=== PATIENT | female | born 1985 | race Caucasian/White ===

== ENCOUNTER 2017-09-13 21:39 | Emergency (ER) | payer SELFPAY ==
[2017-09-13] MEDS ORDERED: Ketorolac 60 MG/2 ML SDV IM ONE (22:02)
[2017-09-13] MEDS ORDERED: Ketorolac 60 MG/2 ML SDV ONE (22:04)
[2017-09-13] MEDS ORDERED: Amoxicillin 500 MG Cap PO ONE (22:15)
--- NOTE | 2017-09-13 22:16 | EDM.PDOC ---
ED HPI GENERAL MEDICAL PROBLEM - General Chief Complaint: General Stated Complaint: RIGHT EAR Pain Time Seen by Provider: 09/13/17 22:00 Source of Information: Reports: Patient History Limitations: Reports: No Limitations - History of Present Illness INITIAL COMMENTS - FREE TEXT/NARRATIVE: 32 YO WF presents to ER with complaints of right ear pain x 2 weeks and right sided jaw pain which began tonight. Pt with history of ear infection 02/2017. Pt denies any fever/chills, no nausea/vomiting, no dizziness and no redness or swelling of right ear or right side of the face. Onset: Today Duration: Week(s): (2) Location: Reports: Face Quality: Reports: Ache Severity: Moderate Improves with: Reports: None Worsens with: Reports: None Associated Symptoms: Reports: No Other Symptoms - Related Data Allergies Allergy/AdvReac Type Severity Reaction Status Date / Time No Known Drug Allergies Allergy none Verified 09/13/17 21:58 Home Meds: Home Meds Amoxicillin 875 mg PO BID #20 tab 09/13/17 [Rx] Excedrine 3 tab PO TID PRN 09/13/17 [History] ED ROS GENERAL - Review of Systems Review Of Systems: See Below Constitutional: Reports: No Symptoms HEENT: Reports: Dental Pain, Ear Pain. Denies: Eye Pain, Hearing Loss, Sinus Problem, Throat Pain Respiratory: Reports: No Symptoms Cardiovascular: Reports: No Symptoms Endocrine: Reports: No Symptoms GI/Abdominal: Reports: No Symptoms : Reports: No Symptoms Musculoskeletal: Reports: No Symptoms Skin: Reports: No Symptoms Neurological: Reports: No Symptoms Psychiatric: Reports: No Symptoms Hematologic/Lymphatic: Reports: No Symptoms Immunologic: Reports: No Symptoms ED EXAM, GENERAL - Physical Exam Exam: See Below Exam Limited By: No Limitations General Appearance: Alert, WD/WN, No Apparent Distress Ears: Normal External Exam, Normal Canal, Hearing Grossly Normal, Normal TMs Ear Exam: Bilateral Ear: Auricle Normal, Canal Normal, TM normal Nose: Normal Inspection, Normal Mucosa, No Blood Throat/Mouth: Normal Lips, Normal Gums, Normal Oropharynx, Normal Voice, No Airway Compromise, Other (multiple dental caries, broken right lower molar with tenderness and erythema to area around gum). No: Normal Teeth Head: Atraumatic, Normocephalic Neck: Normal Inspection, Supple, Non-Tender, Full Range of Motion Respiratory/Chest: No Respiratory Distress, Lungs Clear, Normal Breath Sounds, No Accessory Muscle Use, Chest Non-Tender Cardiovascular: Normal Peripheral Pulses, Regular Rate, Rhythm, No Edema, No Gallop, No JVD, No Murmur, No Rub GI/Abdominal: Normal Bowel Sounds, Soft, Non-Tender, No Organomegaly, No Distention, No Abnormal Bruit, No Mass Back Exam: Normal Inspection, Full Range of Motion, NT Extremities: Normal Inspection, Normal Range of Motion, Non-Tender, Normal Capillary Refill, No Pedal Edema Neurological: Alert, Oriented, CN II-XII Intact, Normal Cognition, Normal Gait, Normal Reflexes, No Motor/Sensory Deficits Psychiatric: Normal Affect, Normal Mood Skin Exam: Warm, Dry, Intact, Normal Color, No Rash Lymphatic: No Adenopathy Course - Orders/Labs/Meds Meds: Medications Discontinued Medications Generic Name Dose Route Start Last Admin Trade Name Freq PRN Reason Stop Dose Admin Ketorolac Tromethamine 60 mg 09/13/17 22:02 Toradol IM 09/13/17 22:03 ONETIME ONE Ketorolac Tromethamine Confirm 09/13/17 22:04 Toradol Administered 09/13/17 22:05 Dose 60 mg .ROUTE .STK-MED ONE Departure - Departure Time of Disposition: 22:20 Disposition: Home, Self-Care 01 Condition: Good Clinical Impression: Dental caries - Discharge Information Prescriptions: Amoxicillin 875 mg PO BID #20 tab Instructions: Diet and Dental Disease, Tooth Injuries, [id number] Referrals: Ana Maria Griffin PA-C [Primary Care Provider] - Additional Instructions: 1. Discharge home 2. amoxil 875mg PO BID x 10 days 3. tylenol 1g oral every 6hours PRN pain 4. motrin 600mg oral every 6 hours PRN pain 5. follow up with dentist for further evaluation and treatment 6. Hydrogen peroxide oral rinse after each meal and before bedtime 7. return to ER for worsening symptoms - Assessment/Plan Assessment:: 1. Dental caries without evidence of abscess Plan: 1. Discharge home 2. amoxil 875mg PO BID x 10 days 3. tylenol 1g oral every 6hours PRN pain 4. motrin 600mg oral every 6 hours PRN pain 5. follow up with dentist for further evaluation and treatment 6. return to ER for worsening symptoms
[2017-09-13] MEDS ORDERED: Amoxicillin 875 MG Tab PO ONE (22:24)
[2017-09-13] MEDS ORDERED: Amoxicillin 250 MG Cap PO ONE (22:25)
[2017-09-13] MEDS ORDERED: Amoxicillin 250 MG Cap ONE (22:25)
[2017-09-13] MEDS ORDERED: Amoxicillin 500 MG Cap ONE (22:25)
[2017-09-13] MEDS ORDERED: Amoxicillin 250 MG/5 ML Susp 150 ML Bottle PO ONE (22:25)
== END 2017-09-13 22:35 | disposition home or self-care (01) ==
LOC: KA.ED 21:39
DX: K02.9 Dental caries, unspecified (principal)
CPT/HCPCS: 96372; 99282; A9270; J1885

== ENCOUNTER 2018-11-15 08:25 | Emergency (ER) | payer BC ==
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
--- NOTE | 2018-11-15 09:54 | CR ---
[id number] RAD/RAD Ribs Left W PA Chest Exam: RAD Ribs Left W PA Chest Indication:PAIN TO SHOULDER AND RIBS. Comparison: No prior imaging for comparison. Discussion: No radiographically evident rib fracture. No or osseous lesion. Lungs are clear. Cardiomediastinal silhouette is normal in size and contour. Impression: Normal examination of the chest. Jose Manuel Brice MD 11/15/18 0954 Thank you for allowing us to participate in the care of your patient.
--- NOTE | 2018-11-15 09:55 | CR ---
[id number] RAD/RAD Shoulder Left 2V Min Exam: RAD Shoulder Left 2V Min Indication:SHOULDER PAIN WITH NUMBNESS TO EXTREMITY. Comparison: No prior imaging for comparison. Discussion: No fracture or dislocation. No osseous lesion. Joint spaces are well-preserved. Bone mineralization is normal. Impression: Normal examination of the shoulder. Jose Manuel Brice MD 11/15/18 0955 Thank you for allowing us to participate in the care of your patient.
[2018-11-15] MEDS ORDERED: Ketorolac 60 MG/2 ML SDV IM ONE (09:58)
[2018-11-15] MEDS ORDERED: Ondansetron 4 MG Tab.DIS PO ONE (09:59)
== END 2018-11-15 10:15 | disposition home or self-care (01) ==
LOC: KA.ED 08:25
DX: S43.402A Unspecified sprain of left shoulder joint, initial encounter (principal); F17.210 Nicotine dependence, cigarettes, uncomplicated; Z79.82 Long term (current) use of aspirin; Z79.899 Other long term (current) drug therapy; W50.0XXA Accidental hit or strike by another person, initial encounter
CPT/HCPCS: 71101; 73030; 99283; A9270; J1885

== ENCOUNTER 2019-06-04 10:50 | Emergency (ER) | payer BC ==
[2019-06-04] MEDS ORDERED: Sodium Chloride 0.9% 1,000 ML IV ONE (11:00)
[2019-06-04] MEDS ORDERED: Sodium Chloride 0.9% 10 ML Syringe FLUSH PRN (11:00)
[2019-06-04] MEDS ORDERED: Ketorolac 30 MG/ML SDV IVPUSH ONE (11:00)
[2019-06-04] MEDS ORDERED: Ondansetron 4 MG/2 ML SDV IVPUSH ONE ×2 (11:00→11:15)
[2019-06-04] MEDS ORDERED: HYDROmorphone 1 MG/ML Syringe IVPUSH ONE (11:15)
--- NOTE | 2019-06-04 11:24 | EDM.PDOC ---
ED HPI GENERAL MEDICAL PROBLEM - General Chief Complaint: Neck Problem Stated Complaint: HEAD/NECK PAIN, NAUSEA/VOMITING Time Seen by Provider: 06/04/19 11:15 Source of Information: Reports: Patient History Limitations: Reports: No Limitations - History of Present Illness INITIAL COMMENTS - FREE TEXT/NARRATIVE: Patient is a 33-year-old female who presents to the emergency department this afternoon via private vehicle with a complaint of neck pain. Patient is status post cervical surgery 2 weeks ago. Patient states pain has been constant postop. However, today it has become worse and now she has a headache. She also had one episode of nausea and vomiting today. Patient is in a cervical collar and spine stabilizer. Patient denies fever, blurry vision, any trauma since surgery, abdominal pain, radicular pain into upper or lower extremities, saddle anesthesia, urinary or bowel incontinence. Onset: Gradual Duration: Day(s): Location: Reports: Neck Quality: Reports: Ache, Sharp Severity: Severe Improves with: Reports: None Worsens with: Reports: Movement Context: Reports: Other (Status post surgery) Associated Symptoms: Reports: Headaches, Nausea/Vomiting. Denies: Chest Pain, Diaphoresis, Fever/Chills, Shortness of Breath, Syncope Headache Pain Score (Numeric/FACES): 10 Neck Pain Score (Numeric/FACES): 10 - Related Data Allergies Allergy/AdvReac Type Severity Reaction Status Date / Time amoxicillin Allergy Cannot Verified 06/04/19 10:55 Remember Home Meds: Home Meds Ondansetron [Zofran ODT] 4 mg PO Q6H PRN 4 Days #15 tab.dis 11/15/18 [Rx] ALPRAZolam [Xanax] 0.25 mg PO ASDIRECTED PRN 06/04/19 [History] Acetaminophen [Tylenol Extra Strength] 500 mg PO TID 06/04/19 [History] Baclofen 10 mg PO TID 06/04/19 [History] Hydrocodone/Acetaminophen [Hydrocodon-Acetaminophen 5-325] 1 tab PO Q4H PRN 12/14 [History] Sertraline HCl 100 mg PO DAILY 06/04/19 [History] Past Medical History - Past Health History Medical/Surgical History: Denies Medical/Surgical History HEENT History: Reports: None Cardiovascular History: Reports: None Respiratory History: Reports: None Gastrointestinal History: Reports: None Genitourinary History: Reports: None 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: , 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 Musculoskeletal History: Reports: Fracture Neurological History: Reports: None Psychiatric History: Reports: Depression Endocrine/Metabolic History: Reports: None Hematologic History: Reports: None Immunologic History: Reports: None Oncologic (Cancer) History: Reports: None Dermatologic History: Reports: None - Infectious Disease History Infectious Disease History: Reports: None - Past Surgical History Head Surgeries/Procedures: Reports: None Musculoskeletal Surgical History: Reports: Other (See Below) Other Musculoskeletal Surgeries/Procedures:: Cervical discectomy/fusion 2019 - Past Imaging History Past Imaging History: Reports: MRI, Other (See Below) (Chest x-rays and other plain films not in our system) Social & Family History - Family History Family Medical History: Noncontributory - Caffeine Use Caffeine Use: Reports: Coffee, Soda ED ROS GENERAL - Review of Systems Review Of Systems: Comprehensive ROS is negative, except as noted in HPI. Constitutional: Reports: No Symptoms. Denies: Fever HEENT: Reports: No Symptoms. Denies: Throat Pain Respiratory: Reports: No Symptoms Cardiovascular: Reports: No Symptoms Endocrine: Reports: No Symptoms GI/Abdominal: Reports: Nausea, Vomiting : Reports: No Symptoms Musculoskeletal: Reports: Neck Pain Skin: Reports: No Symptoms Neurological: Reports: No Symptoms Psychiatric: Reports: No Symptoms Hematologic/Lymphatic: Reports: No Symptoms Immunologic: Reports: No Symptoms ED EXAM, UPPER BACK/NECK PAIN - Physical Exam Exam: See Below Exam Limited By: No Limitations General Appearance: Alert, WD/WN, Moderate Distress Eye Exam: Bilateral Eye: Normal Inspection Nose Exam: Normal Inspection, No Blood Throat/Mouth Exam: Normal Inspection, Normal Oropharynx, No Airway Compromise Head Exam: Atraumatic, Normocephalic Neck Exam: Muscle Spasm, Spinous Processes Tender Nexus Criteria: Posterior, Midline Cervical Tenderness. No: Evidence of Intoxication, Altered Level of Consciousness, Focal Neurological Deficit, Painful Distraction Injuries Cardiovascular/Respiratory: Regular Rate, Rhythm, Normal Peripheral Pulses, Normal Breath Sounds GI/Abdominal: Normal Bowel Sounds, Soft, Non-Tender, No Organomegaly, No Distention, No Abnormal Bruit, No Mass Back Exam: No: CVA Tenderness (L), CVA Tenderness (R) Extremities: Normal Inspection, No Pedal Edema Neurologic: mri technologist II-XII nml As Tested, No Motor/Sensory Deficits, Alert, Oriented x 3 Psychiatric: Anxious Skin Exam: Normal Color, Warm/Dry Lymphatic: No Adenopathy Course - Vital Signs Last Recorded V/S: Last Vital Signs Temp 97.5 F 06/04/19 11:00 Pulse 85 06/04/19 11:00 Resp 20 06/04/19 11:00 BP 134/78 06/04/19 11:00 Pulse Ox 95 06/04/19 11:00 - Orders/Labs/Meds Orders: Active Orders 24 hr Category Date Time Status Peripheral IV Care [RC] . DIRECTED Care 06/04/19 11:01 Active Sodium Chloride 0.9% [Saline Flush] Med 06/04/19 11:00 Active 10 ml FLUSH Q8HR PRN Peripheral IV Insertion Adult [OM.PC] Routine Oth 06/04/19 11:00 Ordered Medication Orders Sodium Chloride (Saline Flush) 10 ml FLUSH Q8HR PRN PRN Reason: keep vein open Labs: Laboratory Tests 06/04/19 06/04/19 06/04/19 Range/Units 11:12 11:12 12:35 WBC 10.75 H (5.00-10.00) 10^3/uL RBC 3.29 L (3.80-5.50) 10^6/uL Hgb 10.4 L D (12.0-16.0) g/dL Hct 31.0 L (37.0-47.0) % MCV 94.2 H (82.0-92.0) fL MCH 31.6 H (27.0-31.0) pg MCHC 33.5 (32.0-36.0) g/dL RDW 15.4 H (11.5-14.5) % Plt Count 549 H D (150-400) 10^3/uL MPV 9.8 (7.4-10.4) fL Immature Gran % (Auto) 1.0 (0.0-5.0) % Neut % (Auto) 67.6 (50.0-70.0) % Lymph % (Auto) 21.3 (20.0-40.0) % Warrick % (Auto) 9.2 H (2.0-8.0) % Eos % (Auto) 0.5 L (1.0-3.0) % Baso % (Auto) 0.4 (0.0-1.0) % Immature Gran # (Auto) 0.11 (0.00-0.50) 10^3/uL Neut # (Auto) 7.27 H (2.50-7.00) 10^3/uL Lymph # (Auto) 2.29 (1.00-4.00) 10^3/uL Warrick # (Auto) 0.99 H (0.10-0.80) 10^3/uL Eos # (Auto) 0.05 L (0.10-0.30) 10^3/uL Baso # (Auto) 0.04 (0.00-0.10) 10^3/uL Sodium 140 (136-145) mmol/L Potassium 4.0 (3.3-5.3) mmol/L Chloride 102 (98-115) mmol/L Carbon Dioxide 24.7 (21.0-32.0) mmol/L Anion Gap 17.3 H (5-15) mmol/L BUN 8 (6-25) mg/dL Creatinine 0.83 (0.51-1.17) mg/dL Est Cr Clr Drug Dosing TNP Estimated GFR (MDRD) > 60 mL/min Glucose 111 H (75 - 99) mg/dL Calcium 8.8 (8.7-10.3) mg/dL Total Bilirubin 0.6 (0.2-1.0) mg/dL AST 17 (15-37) U/L ALT 48 (12-78) U/L Alkaline Phosphatase 167 H (46-116) IU/L Total Protein 7.2 (6.4-8.2) g/dL Albumin 2.94 L (3.00-4.80) g/dL Specimen Type Urincc Urine Color Yellow (YELLOW) Urine Appearance Slightly cloudy H (CLEAR) Urine pH 7.0 (5.0-9.0) Ur Specific [place] 1.015 (1.005-1.030) Urine Protein Negative (NEGATIVE) mg/dL Urine Glucose (UA) Negative (NEGATIVE) mg/dL Urine Ketones Negative (NEGATIVE) mg/dL Urine Occult Blood Trace-intact H (NEGATIVE) Urine Nitrite Negative (NEGATIVE) Urine Bilirubin Negative (NEGATIVE) Urine Urobilinogen 0.2 (0.2-1.0) E.U./dL Ur Leukocyte Esterase Negative (NEGATIVE) Urine RBC 0-5 (0-5) /HPF Urine WBC 5-10 H (0-5) /HPF Ur Epithelial Cells Few /LPF Urine Bacteria Few (NONE TO FEW) /HPF Meds: Medications Generic Name Dose Route Start Last Admin Trade Name Carmen PRN Reason Stop Dose Admin Sodium Chloride 10 ml 06/04/19 11:00 Saline Flush FLUSH Q8HR PRN keep vein open Discontinued Medications Generic Name Dose Route Start Last Admin Trade Name Frelary PRN Reason Stop Dose Admin Hydromorphone HCl 1 mg 06/04/19 11:15 06/04/19 11:26 Dilaudid IVPUSH 06/04/19 11:16 1 mg ONETIME ONE Administration Sodium Chloride 1,000 mls @ 999 mls/hr 06/04/19 11:00 06/04/19 11:17 Normal Saline IV 06/04/19 12:00 999 mls/hr .BOLUS ONE Administration Ketorolac Tromethamine 30 mg 06/04/19 11:00 06/04/19 11:20 Toradol IVPUSH 06/04/19 11:01 30 mg ONETIME ONE Administration Ondansetron HCl 4 mg 06/04/19 11:00 06/04/19 11:17 Zofran IVPUSH 06/04/19 11:01 4 mg ONETIME ONE Administration Ondansetron HCl 4 mg 06/04/19 11:15 06/04/19 12:46 Zofran IVPUSH 06/04/19 11:16 Not Given ONETIME ONE - Radiology Interpretation Free Text/Narrative:: CT cervical spine without contrast shows extensive recent surgical changes without mass, fracture, or subluxation - Re-Assessments/Exams Free Text/Narrative Re-Assessment/Exam: 06/04/19 13:11 Patient afebrile, vital signs stable, pain controlled. Patient has a follow-up with orthopedic on Thursday. Patient will return to emergency department sooner if symptoms continue or worsen. Departure - Departure Time of Disposition: 13:13 Disposition: Home, Self-Care 01 Condition: Good Clinical Impression: Cervical disc disorder - Discharge Information Instructions: Degenerative Disk Disease, Cervical Collar, Spinal Fusion, Adult , Care After, [id number], Pain Medicine Instructions, [id number] Referrals: Ana Maria Griffin PA-C [Primary Care Provider] - Forms: ED Department Discharge Additional Instructions: Follow-up as scheduled with orthopedic on Thursday. Return to emergency department sooner symptoms continue or worsen. Sepsis Event Note - Focused Exam Vital Signs: Vital Signs Temp Pulse Resp BP Pulse Ox 06/04/19 11:00 97.5 F 85 20 134/78 95 Date Exam was Performed: 06/04/19 Time Exam was Performed: 13:11 - My Orders Last 24 Hours: My Active Orders 06/04/19 11:00 Sodium Chloride 0.9% [Saline Flush] 10 ml FLUSH Q8HR PRN Peripheral IV Insertion Adult [OM.PC] Routine 06/04/19 11:01 Peripheral IV Care [RC] . DIRECTED - Assessment/Plan Last 24 Hours: My Active Orders 06/04/19 11:00 Sodium Chloride 0.9% [Saline Flush] 10 ml FLUSH Q8HR PRN Peripheral IV Insertion Adult [OM.PC] Routine 06/04/19 11:01 Peripheral IV Care [RC] . DIRECTED Assessment:: Neck pain Plan: Follow-up as scheduled with orthopedic
[2019-06-04 11:48] LABS: ANION GAP 17.3 mmol/L (5-15); CHLORIDE,CL 102 mmol/L (98-115); SODIUM,NA 140 mmol/L (136-145)
--- NOTE | 2019-06-04 12:55 | CT ---
[id number] CT/CT Cervical Spine WO IV Exam CT cervical spine without IV contrast Clinical Data: NECK PAIN COMPARISON: CORRELATION IS MADE WITH THE EXAM OF DECEMBER 07, 2018 FINDINGS: Extensive relatively recent surgical spine changes are seen There is anterior fixation of C3, C4, C5, and C6 There is posterior decompression of these levels There is no fracture or subluxation IMPRESSION: EXTENSIVE SURGICAL CHANGES NO FRACTURE OR SUBLUXATION FRACTION SEE DISCUSSION ABOVE Shad Giles MD 06/04/19 [id number] Thank you for allowing us to participate in the care of your patient.
--- NOTE | 2019-06-04 12:58 | CR ---
[id number] RAD/RAD Abdomen 3V Exam: RAD Abdomen 3V Clinical Data: NAUSEA AND VOMITING POSTOPERATIVE PATIENT COMPARISON: CORRELATION IS MADE WITH THE EXAM OF MAY 19, 2019 FINDINGS: The bowel gas pattern is unremarkable There is an abdominal binder There is no bowel obstruction or free air There is no organomegaly or pathologic calcification IMPRESSION: NO OBVIOUS ACUTE PLAIN FILM ABNORMALITY Shad Giles MD 06/04/19 [id number] Thank you for allowing us to participate in the care of your patient.
[2019-06-04] MEDS ORDERED: Diazepam 5 MG Tab PO ONE (13:11)
== END 2019-06-04 13:40 | disposition home or self-care (01) ==
LOC: KA.ED 10:50
DX: M50.90 Cervical disc disorder, unspecified, unspecified cervical region (principal); R11.2 Nausea with vomiting, unspecified; F32.9 Major depressive disorder, single episode, unspecified; Z88.1 Allergy status to other antibiotic agents; Z79.899 Other long term (current) drug therapy
CPT/HCPCS: 72125; 74021; 80053; 81001; 85025; 96361; 96374; 96375; 99284; A9270; J1170; J1885; J2405; J7030

== ENCOUNTER 2022-08-11 18:29 | Emergency (ER) | payer BC ==
[2022-08-11] MEDS ORDERED: Sodium Chloride 0.9% 1,000 ML IV ONE (18:30)
[2022-08-11] MEDS ORDERED: Sodium Chloride 0.9% 1,000 ML ONE (18:35)
[2022-08-11] MEDS ORDERED: Sodium Chloride 0.9% 10 ML Syringe FLUSH PRN (18:47)
[2022-08-11] MEDS ORDERED: Ondansetron 4 MG/2 ML SDV IVPUSH ONE (18:56)
[2022-08-11] MEDS ORDERED: Ondansetron 4 MG Tab.DIS PO ONE (19:05)
[2022-08-11 19:42] LABS: ANION GAP 12.8 mmol/L (5-15)
== END 2022-08-11 20:00 | disposition home or self-care (01) ==
LOC: KA.ED 18:29
DX: O21.0 Mild hyperemesis gravidarum (principal); Z88.0 Allergy status to penicillin; Z3A.09 9 weeks gestation of pregnancy
CPT/HCPCS: 80048; 84702; 85025; 96361; 96374; 99284; 99284-25; A9270-GY; J2405; J3490; J7030

== ENCOUNTER 2024-05-07 20:45 | Emergency (ER) | payer BC ==
[2024-05-07] MEDS: Sodium Chloride 0.9% 10 ML Syringe FLUSH PRN (21:54)
== END 2024-05-07 22:16 ==
LOC: KA.ED 20:45
DX: K22.2 Esophageal obstruction (principal); Z88.0 Allergy status to penicillin
CPT/HCPCS: 70360; 71045; 99284; 99285

== ENCOUNTER 2024-05-29 19:58 | Emergency (ER) | payer BC | END 2024-05-29 20:08 | disposition left against medical advice (07) | LOC: KA.ED 19:58 | DX: Z53.21 Procedure and treatment not carried out due to patient leaving prior to being seen by health care provider (principal) ==